=== PATIENT | male | born 1980 ===

== ENCOUNTER 2019-07-03 02:20 | Emergency (ER) | payer MEDICAID ==
[~2019-07-03] VITALS: Ht 172.7 cm; Wt 90.0 kg
[2019-07-03] MEDS ORDERED: ONDANSETRON 2MG/ML, 2ML IVPush ONE (02:30)
[2019-07-03] MEDS ORDERED: HYDROmorphone 1 MG/ML, 1ML VIAL ONE ×2 (02:32→04:41)
[2019-07-03] MEDS: HYDROmorphone 1 MG/ML, 1ML VIAL IVPush PRN ×2 (02:34→04:43)
--- NOTE | 2019-07-03 02:39 | NUR ---
Patient brought to room with [facility]. Patient able to move himself from [place] to emergency room [facility]. Patient grimacing holding abdomen. Physician to bedside for assesment. Diffuse abdominal pain worsening with palpation of lower abdomen. Pain radiates to back left when pressure on suprapubic area. Some tenderness on right testicle. Orders placed by provider, rn returned to bedside to administer pain medication and ultrasound imaging services director to bedside and patient transported to ultrasound.
--- NOTE | 2019-07-03 02:53 | NUR ---
BACK FROM CT
[2019-07-03 03:09] LABS: BASOPHILS # (AUTO) 0.02 x10^3/uL (0-0.1); BASOPHILS % (AUTO) 0 % (0-1); EOSINOPHILS # (AUTO) 0.13 x10^3/uL (0-0.4); EOSINOPHILS % (AUTO) 1 % (1-7); LYMPHOCYTES # (AUTO) 1.78 x10^3/uL (1-3.4); LYMPHOCYTES % (AUTO) 12 % (22-44); MD NO; MEAN CORPUSCULAR HEMOGLOBIN 29.6 pg (27.5-34.5); MEAN CORPUSCULAR HGB CONC 33.9 g/dL (33.2-36.2); MEAN CORPUSCULAR VOLUME 87.5 fL (81-97); MEAN PLATELET VOLUME 7.1 fL (7.4-10.4); MONOCYTES # (AUTO) 0.84 x10^3/uL (0.2-0.8); MONOCYTES % (AUTO) 6 % (2-9); NEUTROPHILS # (AUTO) 11.65 x10^3/uL (1.8-6.8); NEUTROPHILS % (AUTO) 81 % (42-75); PLATELET COUNT 266 x10^3/uL (130-400); RED BLOOD COUNT 5.32 x10^6/uL (4.38-5.82); RED CELL DISTRIBUTION WIDTH 13.6 % (9.4-14.8)
[2019-07-03 03:18] LABS: ALANINE AMINOTRANSFERASE 31 U/L (12-78); ALBUMIN 3.8 g/dL (3.4-5.0); ANION GAP 5 mmol/L (5-15); CALCIUM 8.7 mg/dL (8.5-10.1); CHLORIDE 107 mmol/L (98-107); CREATININE 1.29 mg/dL (0.7-1.3)
[2019-07-03 03:21] LABS: ALKALINE PHOSPHATASE 90 U/L (45-117); BILIRUBIN,TOTAL 0.6 mg/dL (0.2-1.0); TOTAL PROTEIN 7.8 g/dL (6.4-8.2)
[2019-07-03] MEDS ORDERED: OMNIPAQUE 350 MG/ML, 100ML BOTTLE ONE (03:48)
--- NOTE | 2019-07-03 04:16 | NUR ---
UA COLLECTED & SENT
[2019-07-03 04:29] LABS: MICROSCOPIC AUTO
[2019-07-03 04:36] LABS: CULTURE INDICATED? NO
[2019-07-03 04:37] VITALS: BP 154/93
== END 2019-07-03 05:14 ==
LOC: ED 05:08
DX: R19.7 Diarrhea, unspecified (principal); R10.84 Generalized abdominal pain; R11.0 Nausea; I10 Essential (primary) hypertension; Z90.89 Acquired absence of other organs; F17.200 Nicotine dependence, unspecified, uncomplicated
CPT/HCPCS: 36415; 74177; 76870; 80053; 81001; 83690; 85025; 96374; 96376; 99284; J1170; Q9967